=== PATIENT | male | born 1935 | race Caucasian/White ===

== ENCOUNTER 2022-11-21 03:46 | Inpatient (IN) | payer MEDICARE, OTHER ==
[2022-11-21] MEDS ORDERED: cefTRIAXone\\ROCEPHIN 1 GM VIAL ONE (04:15)
[2022-11-21] MEDS ORDERED: Bacitracin Zinc Ointment 30 gm TUBE ONE (04:38)
[2022-11-21] MEDS ORDERED: Bupivacaine 0.25% HCL 30 ML VIAL ONE (04:38)
[2022-11-21] MEDS ORDERED: Iopamidol 30 ML ONE (04:38)
[2022-11-21] MEDS ORDERED: Ketamine 50 MG/ML (10ML VIAL) ONE (04:49)
[2022-11-21] MEDS ORDERED: fentaNYL PF 100 MCG/2 ML SYRINGE ONE (04:49)
[2022-11-21] MEDS ORDERED: Ondansetron PF 4 MG/2 ML Vial ONE (05:19)
[2022-11-21] MEDS ORDERED: ePHEDrine 50 MG/ML VIAL ONE (05:19)
[2022-11-21] MEDS ORDERED: Rocuronium Bromide 10 MG/ML (10ML VIAL) ONE (05:19)
[2022-11-21] MEDS ORDERED: PHENYLEPHRINE-NS 100 MCG/ML 10 ML SYRINGE ONE (05:19)
[2022-11-21] MEDS ORDERED: Dexamethasone 20 MG/5 ML VIAL ONE (05:19)
[2022-11-21] MEDS ORDERED: PROPOFOL 200 MG/20 ML VIAL ONE (05:19)
[2022-11-21] MEDS ORDERED: Lidocaine 1% PF 5 ML VIAL ONE (05:19)
[2022-11-21 05:52] LABS: SARS-CoV-2 NAA Rapid Test Not Detected (NotDetected)
[2022-11-21] MEDS ORDERED: Ondansetron HCl/PF 4 MG/2 ML Vial IVP PRN (06:37)
[2022-11-21] MEDS ORDERED: Promethazine HCl 25 MG/ML VIAL IM PRN (06:37)
[2022-11-21] MEDS ORDERED: Ondansetron PF 4 MG/2 ML Vial IVP PRN (08:20)
[2022-11-21] MEDS ORDERED: Ondansetron ODT 4 MG TAB PO PRN (08:20)
[2022-11-21] MEDS ORDERED: Acetaminophen 325 MG TAB PO PRN (08:20)
[2022-11-21 13:29] VITALS: BMI 32.1
[2022-11-21] MEDS: Triple Antibiotic Oint 1 GM Packet TOP SCH ×5 (14:44→19:43)
[2022-11-21] MEDS: Sodium Chloride 0.9% 1,000 ML IV SCH (14:45)
[2022-11-21] MEDS: Atorvastatin Calcium 10 MG TAB PO SCH (19:40)
[2022-11-21] MEDS: Melatonin 3 MG TAB PO PRN (23:08)
[2022-11-22] MEDS: HYDROcodone/Acetaminophen 5/325 mg Tablet PO PRN (00:56)
[2022-11-22] MEDS ORDERED: Melatonin 3 MG TAB PO SCH (01:15)
[2022-11-22] MEDS: Sodium Chloride 0.9% 1,000 ML IV SCH (05:13)
[2022-11-22 07:06] LABS: Anion Gap 11 mmol/L (10-20); BUN (Urea Nitrogen) 23 mg/dL (8.4-25.7); Calc. Creatinine Clearance 61 mL/min (70-130); Calcium 8.6 mg/dL (7.8-10.44); Carbon Dioxide 24 mmol/L (23-31); Chloride 108 mmol/L (98-107); Estimated GFR 59; Glucose 98 mg/dL (83-110); Potassium 4.1 mmol/L (3.5-5.1); Sodium 139 mmol/L (136-145)
[2022-11-22 07:44] LABS: #Lymphocytes 1.1 thou/uL (1.20-3.40); #Monocytes 0.9 thou/uL (0.11-0.59); #Neutrophils 10.3 thou/uL (1.40-6.50); %Basophils 0.4 % (0.0-1.0); %Eosinophils 0.1 % (0.0-10.0); %Lymphocytes 8.6 % (21.0-51.0); %Monocytes 7.5 % (0.0-10.0); %Neutrophils 83.4 % (42.0-75.0); Hemoglobin 13.4 g/dL (14.0-18.0); MDiff Complete? YES; Macrocytosis MODERATE=16-30 cells (100X) (0-5/hpf); Mean Corpuscular Hemoglobin 33.7 pg (27.0-31.0); Mean Platelet Volume 7.8 fL (7.4-10.4); Platelet Count 157 10x3/uL (130-400); Platelet Morphology Comment Appears Adequate; Polychromasia SLIGHT = 2-3 cells (100X) (0-2/hpf); RBC Distribution Width 13.6 % (11.5-14.5); Red Blood Cell (RBC) Count 3.98 mill/uL (4.70-6.10); White Blood Cell (WBC) Count 12.3 10x3/uL (4.8-10.8)
[2022-11-22] MEDS ORDERED: FLU VACC QS2022-23(65YR UP)/PF 240 MCG/0.7 ML SYRINGE IM ONE (09:00)
[2022-11-22] MEDS: cefTRIAXone\\ROCEPHIN 1 GM in Sodium Chloride 0.9% 100 ML IVPB SCH (09:13)
[2022-11-22] MEDS: Triple Antibiotic Oint 1 GM Packet TOP SCH ×6 (09:14→20:50)
[2022-11-22] MEDS: Allopurinol 100 MG TAB PO SCH (09:14)
[2022-11-22] MEDS: Levothyroxine 150 MCG TAB PO SCH (09:14)
[2022-11-22] MEDS: Timolol 0.25% Ophth Soln 5 ml Bottle EA EYE SCH (11:43)
[2022-11-22] MEDS: Atorvastatin Calcium 10 MG TAB PO SCH (19:56)
[2022-11-22] MEDS: Melatonin 3 MG TAB PO PRN (19:56)
[2022-11-23] MEDS: Sodium Chloride 0.9% 1,000 ML IV SCH ×2 (02:26→19:57)
[2022-11-23 06:59] LABS: #Eosinphils 0.3 thou/uL (0.0-0.7); #Lymphocytes 1.7 thou/uL (1.20-3.40); #Monocytes 0.8 thou/uL (0.11-0.59); #Neutrophils 7.1 thou/uL (1.40-6.50); %Basophils 0.3 % (0.0-1.0); %Lymphocytes 17.5 % (21.0-51.0); %Monocytes 8.4 % (0.0-10.0); %Neutrophils 70.8 % (42.0-75.0); Hemoglobin 13.1 g/dL (14.0-18.0); Mean Corpuscular HGB CONC 32.8 g/dL (32.0-36.0); Mean Corpuscular Hemoglobin 34.5 pg (27.0-31.0); Mean Platelet Volume 7.4 fL (7.4-10.4); Platelet Count 174 10x3/uL (130-400); RBC Distribution Width 13.5 % (11.5-14.5)
[2022-11-23 07:20] LABS: Anion Gap 10 mmol/L (10-20); BUN (Urea Nitrogen) 25 mg/dL (8.4-25.7); Calc. Creatinine Clearance 61 mL/min (70-130); Calcium 8.6 mg/dL (7.8-10.44); Carbon Dioxide 22 mmol/L (23-31); Chloride 109 mmol/L (98-107); Estimated GFR 59; Glucose 85 mg/dL (83-110); Potassium 4.2 mmol/L (3.5-5.1); Sodium 137 mmol/L (136-145)
[2022-11-23] MEDS: Tamsulosin HCl 0.4 MG CAP PO SCH (09:09)
[2022-11-23] MEDS: Triple Antibiotic Oint 1 GM Packet TOP SCH ×3 (09:10→19:57)
[2022-11-23] MEDS: Levothyroxine 150 MCG TAB PO SCH (09:10)
[2022-11-23] MEDS: Allopurinol 100 MG TAB PO SCH (09:10)
[2022-11-23] MEDS: Amlodipine 10 MG TAB PO SCH (09:10)
[2022-11-23] MEDS: Aspirin 81 mg Enteric Coated Tablet PO SCH (09:10)
[2022-11-23] MEDS: Timolol 0.25% Ophth Soln 5 ml Bottle EA EYE SCH (09:12)
[2022-11-23] MEDS: cefTRIAXone\\ROCEPHIN 1 GM in Sodium Chloride 0.9% 100 ML IVPB SCH (10:01)
[2022-11-23] MEDS: Atorvastatin Calcium 10 MG TAB PO SCH (19:57)
[2022-11-23] MEDS: HYDROcodone/Acetaminophen 5/325 mg Tablet PO PRN (19:57)
[2022-11-23] MEDS: Melatonin 3 MG TAB PO PRN (22:14)
[2022-11-24] MEDS ORDERED: Ipratropium/Albuterol 3 ML NEB NEB SCH (00:30)
[2022-11-24 01:49] LABS: Anion Gap 12 mmol/L (10-20); BUN (Urea Nitrogen) 21 mg/dL (8.4-25.7); Calc. Creatinine Clearance 67 mL/min (70-130); Carbon Dioxide 22 mmol/L (23-31); Chloride 108 mmol/L (98-107); Estimated GFR 66; Glucose 86 mg/dL (83-110); Magnesium 1.8 mg/dL (1.6-2.6); Potassium 3.9 mmol/L (3.5-5.1); Sodium 138 mmol/L (136-145)
[2022-11-24] MEDS ORDERED: Furosemide 40 MG/4 ML VIAL SLOW IVP SCH (02:00)
[2022-11-24 06:52] LABS: #Eosinphils 0.4 thou/uL (0.0-0.7); #Lymphocytes 1.8 thou/uL (1.20-3.40); #Monocytes 0.9 thou/uL (0.11-0.59); #Neutrophils 5.8 thou/uL (1.40-6.50); %Eosinophils 4.1 % (0.0-10.0); %Lymphocytes 19.9 % (21.0-51.0); %Monocytes 10.6 % (0.0-10.0); %Neutrophils 65.5 % (42.0-75.0); Hemoglobin 13.7 g/dL (14.0-18.0); Mean Corpuscular HGB CONC 32.1 g/dL (32.0-36.0); Mean Corpuscular Hemoglobin 33.5 pg (27.0-31.0); Mean Platelet Volume 7.7 fL (7.4-10.4); Platelet Count 197 10x3/uL (130-400); RBC Distribution Width 13.4 % (11.5-14.5); White Blood Cell (WBC) Count 8.8 10x3/uL (4.8-10.8)
[2022-11-24 07:15] LABS: Anion Gap 13 mmol/L (10-20); BUN (Urea Nitrogen) 20 mg/dL (8.4-25.7); Calc. Creatinine Clearance 62 mL/min (70-130); Calcium 9.2 mg/dL (7.8-10.44); Carbon Dioxide 25 mmol/L (23-31); Chloride 106 mmol/L (98-107); Estimated GFR 60; Glucose 85 mg/dL (83-110); Potassium 3.7 mmol/L (3.5-5.1); Sodium 140 mmol/L (136-145)
[2022-11-24] MEDS: cefTRIAXone\\ROCEPHIN 1 GM in Sodium Chloride 0.9% 100 ML IVPB SCH (08:18)
[2022-11-24] MEDS: Levothyroxine 150 MCG TAB PO SCH (08:19)
[2022-11-24] MEDS: Aspirin 81 mg Enteric Coated Tablet PO SCH (08:19)
[2022-11-24] MEDS: Allopurinol 100 MG TAB PO SCH (08:19)
[2022-11-24] MEDS: Tamsulosin HCl 0.4 MG CAP PO SCH (08:19)
[2022-11-24] MEDS: Timolol 0.25% Ophth Soln 5 ml Bottle EA EYE SCH (08:20)
[2022-11-24] MEDS: Triple Antibiotic Oint 1 GM Packet TOP SCH ×3 (08:20→19:45)
[2022-11-24] MEDS: Amlodipine 10 MG TAB PO SCH (08:20)
[2022-11-24] MEDS: Sodium Chloride 0.9% 1,000 ML IV SCH (17:47)
[2022-11-24] MEDS: Atorvastatin Calcium 10 MG TAB PO SCH (19:45)
[2022-11-24] MEDS: Melatonin 3 MG TAB PO PRN (19:48)
[2022-11-25 06:44] LABS: #Eosinphils 0.3 thou/uL (0.0-0.7); #Lymphocytes 1.8 thou/uL (1.20-3.40); #Neutrophils 7.1 thou/uL (1.40-6.50); %Basophils 0.1 % (0.0-1.0); %Eosinophils 2.9 % (0.0-10.0); %Lymphocytes 17.6 % (21.0-51.0); %Monocytes 9.5 % (0.0-10.0); %Neutrophils 69.9 % (42.0-75.0); Hemoglobin 14.9 g/dL (14.0-18.0); Mean Corpuscular HGB CONC 32.6 g/dL (32.0-36.0); Mean Corpuscular Hemoglobin 33.5 pg (27.0-31.0); Mean Platelet Volume 7.7 fL (7.4-10.4); Platelet Count 196 10x3/uL (130-400); RBC Distribution Width 13.3 % (11.5-14.5); Red Blood Cell (RBC) Count 4.44 mill/uL (4.70-6.10); White Blood Cell (WBC) Count 10.1 10x3/uL (4.8-10.8)
[2022-11-25 07:13] LABS: Anion Gap 11 mmol/L (10-20); BUN (Urea Nitrogen) 19 mg/dL (8.4-25.7); Calc. Creatinine Clearance 76 mL/min (70-130); Calcium 9.1 mg/dL (7.8-10.44); Carbon Dioxide 26 mmol/L (23-31); Chloride 105 mmol/L (98-107); Estimated GFR 77; Glucose 87 mg/dL (83-110); Potassium 3.7 mmol/L (3.5-5.1); Sodium 138 mmol/L (136-145)
[2022-11-25] MEDS: cefTRIAXone\\ROCEPHIN 1 GM in Sodium Chloride 0.9% 100 ML IVPB SCH (08:42)
[2022-11-25] MEDS: Allopurinol 100 MG TAB PO SCH (08:43)
[2022-11-25] MEDS: Timolol 0.25% Ophth Soln 5 ml Bottle EA EYE SCH (08:43)
[2022-11-25] MEDS: Amlodipine 10 MG TAB PO SCH (08:43)
[2022-11-25] MEDS: Levothyroxine 150 MCG TAB PO SCH (08:43)
[2022-11-25] MEDS: Tamsulosin HCl 0.4 MG CAP PO SCH (08:43)
[2022-11-25] MEDS: Aspirin 81 mg Enteric Coated Tablet PO SCH (08:43)
[2022-11-25] MEDS: Triple Antibiotic Oint 1 GM Packet TOP SCH ×3 (08:43→20:51)
[2022-11-25] MEDS: Atorvastatin Calcium 10 MG TAB PO SCH (20:51)
[2022-11-25] MEDS: Melatonin 3 MG TAB PO PRN (20:51)
[2022-11-25] MEDS: Ciprofloxacin 500 MG TAB PO SCH (20:51)
[2022-11-26] MEDS: Ciprofloxacin 500 MG TAB PO SCH ×2 (06:07→20:27)
[2022-11-26 07:17] LABS: #Eosinphils 0.4 thou/uL (0.0-0.7); #Lymphocytes 1.2 thou/uL (1.20-3.40); #Monocytes 0.9 thou/uL (0.11-0.59); #Neutrophils 7.7 thou/uL (1.40-6.50); %Basophils 0.2 % (0.0-1.0); %Eosinophils 3.8 % (0.0-10.0); %Lymphocytes 12.1 % (21.0-51.0); %Monocytes 8.7 % (0.0-10.0); %Neutrophils 75.3 % (42.0-75.0); Hemoglobin 14.1 g/dL (14.0-18.0); Mean Corpuscular HGB CONC 32.1 g/dL (32.0-36.0); Mean Corpuscular Hemoglobin 33.2 pg (27.0-31.0); Platelet Count 243 10x3/uL (130-400); RBC Distribution Width 13.4 % (11.5-14.5); Red Blood Cell (RBC) Count 4.24 mill/uL (4.70-6.10); White Blood Cell (WBC) Count 10.2 10x3/uL (4.8-10.8)
[2022-11-26 07:35] LABS: Anion Gap 10 mmol/L (10-20); BUN (Urea Nitrogen) 17 mg/dL (8.4-25.7); Calc. Creatinine Clearance 72 mL/min (70-130); Calcium 8.9 mg/dL (7.8-10.44); Carbon Dioxide 27 mmol/L (23-31); Chloride 105 mmol/L (98-107); Estimated GFR 72; Glucose 101 mg/dL (83-110); Potassium 3.7 mmol/L (3.5-5.1); Sodium 138 mmol/L (136-145)
[2022-11-26] MEDS: Timolol 0.25% Ophth Soln 5 ml Bottle EA EYE SCH (08:59)
[2022-11-26] MEDS: Triple Antibiotic Oint 1 GM Packet TOP SCH ×3 (08:59→20:27)
[2022-11-26] MEDS: Amlodipine 10 MG TAB PO SCH (08:59)
[2022-11-26] MEDS: Allopurinol 100 MG TAB PO SCH (08:59)
[2022-11-26] MEDS: Levothyroxine 150 MCG TAB PO SCH (08:59)
[2022-11-26] MEDS: Tamsulosin HCl 0.4 MG CAP PO SCH (08:59)
[2022-11-26] MEDS: Aspirin 81 mg Enteric Coated Tablet PO SCH (08:59)
[2022-11-26] MEDS: Atorvastatin Calcium 10 MG TAB PO SCH (20:27)
[2022-11-26] MEDS: Melatonin 3 MG TAB PO PRN (20:29)
[2022-11-26] MEDS ORDERED: Docusate 100 MG CAP PO PRN (20:38)
[2022-11-27] MEDS: Ciprofloxacin 500 MG TAB PO SCH (05:57)
[2022-11-27] MEDS: Amlodipine 10 MG TAB PO SCH (08:46)
[2022-11-27] MEDS: Triple Antibiotic Oint 1 GM Packet TOP SCH (08:46)
[2022-11-27] MEDS: Aspirin 81 mg Enteric Coated Tablet PO SCH (08:47)
[2022-11-27] MEDS: Levothyroxine 150 MCG TAB PO SCH (08:47)
[2022-11-27] MEDS: Timolol 0.25% Ophth Soln 5 ml Bottle EA EYE SCH (08:47)
[2022-11-27] MEDS: Allopurinol 100 MG TAB PO SCH (08:47)
[2022-11-27] MEDS: Tamsulosin HCl 0.4 MG CAP PO SCH (08:47)
[2022-11-27 15:20] VITALS: BP 138/91; TEMP 97.5
== END 2022-11-27 15:21 | DRG 659 ==
LOC: ERS 03:46 → SUATTDRO 06:59 → SDC 06:59 → T4-A 07:00 → OBSVTOIN 11-24 12:34
PROVIDERS: ADMIT Internal Medicine; ATTEND Internal Medicine
PROC: 0T778DZ Dilation of Left Ureter with Intraluminal Device, Via Natural or Artificial Opening Endoscopic (ICD-10-PCS; principal; 2022-11-21)
PROC: BT1FZZZ Fluoroscopy of Left Kidney, Ureter and Bladder (ICD-10-PCS; 2022-11-21)
DX: N20.1 Calculus of ureter (principal); J96.01 Acute respiratory failure with hypoxia; N17.9 Acute kidney failure, unspecified; N39.0 Urinary tract infection, site not specified; N47.1 Phimosis; Z20.822 Contact with and (suspected) exposure to COVID-19; F03.A0 Unspecified dementia, mild, without behavioral disturbance, psychotic disturbance, mood disturbance, and anxiety; E03.9 Hypothyroidism, unspecified; M10.9 Gout, unspecified; H35.30 Unspecified macular degeneration; N40.0 Benign prostatic hyperplasia without lower urinary tract symptoms; I12.9 Hypertensive chronic kidney disease with stage 1 through stage 4 chronic kidney disease, or unspecified chronic kidney disease; N18.9 Chronic kidney disease, unspecified; E78.5 Hyperlipidemia, unspecified; E87.70 Fluid overload, unspecified; I25.10 Atherosclerotic heart disease of native coronary artery without angina pectoris; Z79.890 Hormone replacement therapy; Z79.899 Other long term (current) drug therapy
CPT/HCPCS: 36415; 71045; 74420; 80048; 83735; 83880; 84439; 84443; 85025; 87811; 93005; 93010; 94640; 96365; 96372; 96375; 96376; C2617; G0378; J0696; J1100; J1650; J1940; J2405; J2704; J3490; J7050; J7620; Q9967; S0020; U0002

== ENCOUNTER 2022-12-15 09:59 | Day surgery (SDC) | payer MEDICARE, OTHER ==
[2022-12-11 13:34] VITALS: BMI 32.1
[2022-12-15] MEDS ORDERED: Levofloxacin 500 mg/D5W 100 ml Premix Bag ONE (10:56)
[2022-12-15] MEDS ORDERED: Lidocaine 1% PF 5 ML VIAL ONE (11:12)
[2022-12-15] MEDS ORDERED: PROPOFOL 200 MG/20 ML VIAL ONE (11:12)
[2022-12-15] MEDS ORDERED: ePHEDrine 50 MG/ML VIAL ONE (11:12)
[2022-12-15] MEDS ORDERED: Iopamidol 30 ML ONE (12:18)
== END 2022-12-15 14:58 | disposition home or self-care (01) ==
LOC: SDC 09:59
PROVIDERS: ATTEND Urology
PROC: 0TC78ZZ Extirpation of Matter from Left Ureter, Via Natural or Artificial Opening Endoscopic (ICD-10-PCS; principal; 2022-12-15)
PROC: 0T778DZ Dilation of Left Ureter with Intraluminal Device, Via Natural or Artificial Opening Endoscopic (ICD-10-PCS; 2022-12-15)
DX: N13.2 Hydronephrosis with renal and ureteral calculous obstruction (principal); N13.8 Other obstructive and reflux uropathy; E03.9 Hypothyroidism, unspecified; M10.9 Gout, unspecified; I10 Essential (primary) hypertension; K59.00 Constipation, unspecified; Z86.73 Personal history of transient ischemic attack (TIA), and cerebral infarction without residual deficits; Z79.82 Long term (current) use of aspirin; Z79.890 Hormone replacement therapy; Z79.899 Other long term (current) drug therapy
CPT/HCPCS: 74420; 82365; 88300; C1769; C2617; J1956; J2704; J3490; Q9967